=== PATIENT | male | born 1970 | race Caucasian/White ===

== ENCOUNTER → 2018-05-17 | Outpatient (CLI) | payer OTHER ==
--- NOTE | 2018-05-18 08:35 | REP ---
MR CERVICAL SPINE WITHOUT CONTRAST: HISTORY: Radiculopathy. A disc bulge is present at the C4-5 level. There is minimal effacement of the thecal sac without spinal cord compression. The C4 neural foramina are patent. A small left paracentral and intraforaminal disc protrusion is present at the C5-6 level. There is mild effacement of the thecal sac without spinal cord compression. Uncinate process hypertrophy is present on the left. There is mild narrowing of the left C5 neural foramen. The right C5 neural foramen is patent. A disc bulge is present at the C6-7 level. There is minimal effacement of the thecal sac without spinal cord compression. Uncinate process hypertrophy is present on the left. This produces mild narrowing of the left C6 neural foramen. The right C6 neural foramina is patent. There is no other disc bulge or herniation. The remaining neural foramina are patent. The spinal cord is normal in signal intensity. Normal signal intensity is present in the cervical vertebral bodies. IMPRESSION: There is cervical spondylosis at the C4-5 through C6-7 levels without spinal cord compression. Unreviewed
--- NOTE | 2018-05-18 08:57 | REP ---
MR LUMBAR SPINE WITHOUT CONTRAST: HISTORY: Radiculopathy. signal intensity on T2-weighted images is present in the L2-3, L4-5 and L5-S1 intervertebral discs. The discs are decreased in height. These findings are consistent with disc degeneration. There is no disc bulge or herniation at the L1-2 and L3-4 levels. The nerves exit the neural foramen without compression. A diffuse disc bulge is present at the L2-3 level. There is minimal compression of the thecal sac. The L2 nerves exit the neural foramina without compression. A diffuse disc bulge is present at the L4-5 level. There is minimal compression of the thecal sac. There is hypertrophy of the posterior articulating facets. The L4 nerves exit the neural foramina without compression. A diffuse disc bulge and small right paracentral and intraforaminal disc protrusion are present at the L5-S1. The disc protrusion abuts the right S1 nerve. There is no thecal sac compression. The L5 nerves exit then neural foramina without compression. The conus medullaris is normal in appearance terminating at the level of the L1-2 intervertebral disc. Normal signal intensity is present in the lumbar vertebral bodies. IMPRESSION: 1. Diffuse disc bulges at the L2-3 and L4-5 levels with minimal thecal sac compression. 2. Diffuse disc bulge and small right paracentral intraforaminal disc protrusion at the L5-S1 level. The disc protrusion abuts the right S1 nerve. Unreviewed
== END ==
LOC: M RAD 16:27
PROVIDERS: ATTEND Nurse Practitioner Family
DX: M47.812 Spondylosis without myelopathy or radiculopathy, cervical region (principal); M50.20 Other cervical disc displacement, unspecified cervical region; M51.26 Other intervertebral disc displacement, lumbar region; M51.27 Other intervertebral disc displacement, lumbosacral region

== ENCOUNTER → 2020-05-29 | Outpatient (CLI) | payer OTHER | LOC: M PLARAD 10:22 | PROVIDERS: ATTEND Nurse Practitioner Family | DX: M54.9 Dorsalgia, unspecified (principal); M25.559 Pain in unspecified hip; M25.511 Pain in right shoulder ==

== ENCOUNTER 2020-08-20 12:53 | Emergency (ER) | payer OTHER ==
[~2020-08-20] VITALS: Ht 177.8 cm; Wt 93.2 kg
[2020-08-20] MEDS ORDERED: FENT50DI5 TD (13:32)
[2020-08-20] MEDS ORDERED: OXYC-517 PO (13:32)
--- NOTE | 2020-08-20 13:59 | REP ---
INDICATION: trauma. COMPARISON: None. TECHNIQUE: 4.5 mm contiguous transaxial sections were obtained from the skull base to the cerebral convexities with thin cuts through the posterior fossa without the administration of intravenous contrast. FINDINGS: The ventricles and sulci are consistent with the patient's age. There are no extra-axial fluid collections. There is no mass effect. The deep cerebral white matter is consistent with the patient's age. The orbital and petrous structures, cerebellopontine angles, and posterior fossa are unremarkable. The sella turcica, cavernous, and paracavernous structures are essentially unremarkable. The visualized portions of the paranasal sinuses and mastoid air cells are clear. Images of the skull base show no gross abnormality. IMPRESSION: Essentially unremarkable CT examination of the brain. <Electronically signed by Kleber Contreras > 08/20/20 [id number]
--- NOTE | 2020-08-20 14:26 | REP ---
INDICATION: trauma COMPARISON: None. TECHNIQUE: Internal rotation, external rotation, and Y view. FINDINGS: Osteoarthritic degenerative changes of the acromioclavicular and glenohumeral joints noted along with old Hill-Sachs deformity. Evidence for prior orthopedic repair. No obvious acute fracture or dislocation appreciated. IMPRESSION: Advanced arthritic degenerative changes and old Hill-Sachs deformity. No acute fracture or dislocation. <Electronically signed by Mark Anthony Rios > 08/20/20 [id number]
--- NOTE | 2020-08-20 14:26 | REP ---
INDICATION: trauma COMPARISON: None. TECHNIQUE: Frontal view of the chest with multiple views of the right hemithorax. Five total views. FINDINGS: Frontal view of the chest demonstrates no acute cardiopulmonary process, contusion, effusion, or pneumothorax. Multiple views of the right hemithorax demonstrates no acute rib fracture/injury or pathology. IMPRESSION: Normal rib series. <Electronically signed by Mark Anthony Rios > 08/20/20 [id number]
--- NOTE | 2020-08-20 14:27 | REP ---
INDICATION: trauma. COMPARISON: None. TECHNIQUE: AP, lateral, flexion/extension, swimmer's, open mouth, and bilateral oblique views of the cervical spine. FINDINGS: Alignment and lordosis maintained. Mild age-related changes are appreciated primarily involving C5-6 and C6-7 with small anterior osteophytes and endplate sclerosis. No acute fracture/compression injury or subluxation. Open mouth view demonstrates normal C1-C2 articulation and odontoid process. Oblique views demonstrate patent neural foramen. IMPRESSION: Minimal age-related changes. No acute fracture/compression injury or subluxation. <Electronically signed by Mark Anthony Rios > 08/20/20 [id number]
[2020-08-20] MEDS ORDERED: methocarbamoL 750 MG TAB PO ONE (17:00)
--- NOTE | 2020-08-20 17:21 | REP ---
INDICATION: fall, low back pain COMPARISON: None. TECHNIQUE: AP, lateral, bilateral oblique, and coned-down views of the lumbar spine. FINDINGS: Alignment and is maintained. Vertebral bodies are intact. No acute fracture/compression injury or subluxation. Disc spaces are relatively normal/age-appropriate. No obvious spondylolysis or spondylolisthesis. Marginal osteophytes noted. IMPRESSION: No acute fracture/compression injury or subluxation. <Electronically signed by Mark Anthony Rios > 08/20/20 [id number]
[2020-08-20 17:35] VITALS: BP 157/97
[2020-08-20] MEDS ORDERED: METH-1165 PO (17:36)
[2020-08-20] MEDS ORDERED: HYDR-3713 PO (17:36)
== END 2020-08-20 17:51 | disposition home or self-care (01) ==
LOC: M ED 12:53
DX: M54.5 Low back pain (principal); M54.2 Cervicalgia; M25.511 Pain in right shoulder; R07.89 Other chest pain; Z79.899 Other long term (current) drug therapy; Z87.820 Personal history of traumatic brain injury; Z91.013 Allergy to seafood